=== PATIENT | male | born 1990 | race American Indian/Alaskan Native ===

== ENCOUNTER 2021-04-01 04:07 | Emergency (ER) | payer SELFPAY ==
[2021-04-01 04:14] VITALS: BP 154/97
[2021-04-01] MEDS ORDERED: MORPHINE 4 MG/1 ML INJ IV ONE (04:20)
[2021-04-01] MEDS ORDERED: SODIUM CHLORIDE 0.9% 1000 ML 1,000 ML IV ONE (04:20)
[2021-04-01] MEDS ORDERED: ONDANSETRON 4 MG/2 ML INJ IV ONE (04:20)
[2021-04-01] MEDS ORDERED: KETOROLAC 30 MG/1 ML INJ IV ONE (04:33)
--- NOTE | 2021-04-01 05:12 | Emergency Department Report ---
ED Abdominal Pain HPI - General Chief Complaint: Abdominal Pain Stated Complaint: VOMITING Time Seen by Provider: 04/01/21 04:19 Source: patient Mode of arrival: Ambulatory Limitations: No Limitations - History of Present Illness Initial Comments: Patient presents with upper abdominal pain and vomiting that started about 2 hours prior to arrival. He states that he just had onset of epigastric pain followed by vomiting. There has been no hematemesis or coffee-ground emesis. He has no trauma. There is been no fevers or chills. Patient states he is never had symptoms like this before. The pain is sharp and stabbing. It does not radiate or migrate. It is not associated with trauma. Patient has no diarrhea. He states he just cannot get comfortable. The pain is severe and he is never had pain of this nature before. He has not noticed any alleviating factors. Severity scale (0 -10): 8 - Related Data Previous Rx's Medication Instructions Recorded Last Taken Type Dicyclomine [Bentyl] 20 mg PO QID PRN #30 tablet 04/01/21 Unknown Rx Ondansetron [Zofran ODT TAB] 8 mg PO Q8HR PRN #20 tab.rapdis 04/01/21 Unknown Rx Allergies Allergy/AdvReac Type Severity Reaction Status Date / Time No Known Allergies Allergy Verified 04/01/21 04:28 ED Review of Systems ROS: Stated complaint: VOMITING Other details as noted in HPI Comment: All other systems reviewed and negative Constitutional: denies: fever Eyes: denies: vision change ENT: denies: throat pain Respiratory: denies: cough Cardiovascular: denies: chest pain Endocrine: denies: unexplained weight loss Gastrointestinal: as per HPI Genitourinary: denies: dysuria Musculoskeletal: denies: back pain Skin: denies: rash Neurological: denies: headache Hematological/Lymphatic: denies: easy bruising ED Past Medical Hx - Past Medical History Previous Medical History?: Yes Hx Hypertension: Yes Additional medical history: Obesity - Surgical History Past Surgical History?: No - Family History Family history: hypertension - Social History Smoking Status: Never Smoker Substance Use Type: None - Medications Home Medications: Home Medications Medication Instructions Recorded Confirmed Last Taken Type Dicyclomine [Bentyl] 20 mg PO QID PRN #30 tablet 04/01/21 Unknown Rx Ondansetron [Zofran ODT TAB] 8 mg PO Q8HR PRN #20 tab.rapdis 04/01/21 Unknown Rx ED Physical Exam - General Limitations: No Limitations, Other (Pulse ox noted and hypoxic. This improves with deep breath.) General appearance: alert, in distress (Moderate to severe discomfort), obese - Head Head exam: Present: atraumatic, normocephalic, normal inspection - Eye Eye exam: Present: normal appearance, EOMI. Absent: scleral icterus - ENT ENT exam: Present: normal exam, normal orophraynx, normal external ear exam - Neck Neck exam: Present: normal inspection. Absent: meningismus - Respiratory Respiratory exam: Present: normal lung sounds bilaterally. Absent: respiratory distress - Cardiovascular Cardiovascular Exam: Present: regular rate, normal rhythm - GI/Abdominal GI/Abdominal exam: Present: soft, tenderness (Epigastric and moderate). Absent: guarding, rebound, pulsatile mass - Extremities Exam Extremities exam: Present: normal capillary refill - Back Exam Back exam: Absent: CVA tenderness (R), CVA tenderness (L) - Neurological Exam Neurological exam: Present: alert, oriented X3, CN II-XII intact. Absent: motor sensory deficit - Psychiatric Psychiatric exam: Present: normal affect, normal mood - Skin Skin exam: Present: diaphoretic ED Course Vital Signs 04/01/21 04:13 Temperature 98.3 F Pulse Rate 87 Respiratory 18 Rate Blood Pressure 154/97 O2 Sat by Pulse 93 Oximetry - Reevaluation(s) Reevaluation #1: 04/01/21 05:14 IV and labs have been ordered. Old records reviewed. Labs are still pending at this time. Reevaluation #2: 04/01/21 05:49 Labs are noted and discussed with the patient. He is feeling better. He was discharged. Abdomen is soft and nontender. There is no rebound or guarding peer there is no tenderness over McBurney's point. ED Medical Decision Making - Lab Data Result diagrams: 04/01/21 04:42 04/01/21 04:42 - Medical Decision Making Patient presents with epigastric pain and vomiting. Etiology for this remains unclear. He certainly could have gastritis or an ulcer. Based on his ev aluation, there is no evidence of acute hepatitis or pancreatitis. He does not have clinical evidence of obstruction. There is no distention or tympany. There is no tenderness over McBurney's point to suggest acute appendicitis. He does not have tenderness in the right upper quadrant suggestive of biliary colic. We have had a discussion about outpatient follow-up and strict return precautions. Critical Care Time: No Critical care attestation.: If time is entered above; I have spent that time in minutes in the direct care of this critically ill patient, excluding procedure time. ED Disposition Clinical Impression: Acute epigastric pain Nausea & vomiting Qualifiers: Vomiting type: unspecified Vomiting Intractability: non-intractable Qualified Code(s): R11.2 - Nausea with vomiting, unspecified Disposition: HOME / SELF CARE / HOMELESS Is pt being admited?: No Condition: Stable Instructions: Abdominal Pain, Adult, Mnin-ow-Dynl, Nausea and Vomiting, Adult, Pain Without a Known Cause Additional Instructions: HAVE A BLAND DIET. DRINK WATER. RETURN FOR PROBLEMS. SEE YOUR DOCTOR OR THE REFERRAL DOCTOR FOR RECHECK. IF YOU DEVELOP OTHER SYMPTOMS DISCUSSED, RETURN IMMEDIATELY. Prescriptions: Dicyclomine [Bentyl] 20 mg PO QID PRN #30 tablet PRN Reason: PAIN Ondansetron [Zofran ODT TAB] 8 mg PO Q8HR PRN #20 tab.rapdis PRN Reason: Nausea Referrals: PRIMARY CAREMD [Primary Care Provider] - 3-5 Days AGUEDA STODDARD MD [Staff Physician] - 3-5 Days
[2021-04-01 05:16] LABS: Mean Corpuscular HGB Conc 33 % (32-34)
[2021-04-01 05:20] LABS: Basophils # (Auto) 0.1 K/mm3 (0.0-0.1); Basophils % (Auto) 0.5 % (0.0-1.8); Eosinophils # (Auto) 0.1 K/mm3 (0.0-0.4); Eosinophils % (Auto) 0.7 % (0.0-4.3); Hematocrit 44.2 % (35.5-45.6); Hemoglobin 14.4 gm/dl (11.8-15.2); Lymphocytes # (Auto) 1.9 K/mm3 (1.2-5.4); Lymphocytes % (Auto) 15.5 % (13.4-35.0); Mean Corpuscular Volume 84 fl (84-94); Monocytes # (Auto) 0.6 K/mm3 (0.0-0.8); Monocytes % (Auto) 5.4 % (0.0-7.3); Platelet Count 258 K/mm3 (140-440); Red Blood Count 5.26 M/mm3 (3.65-5.03); Red Cell Distribution Width 16.7 % (13.2-15.2)
[2021-04-01 05:21] LABS: Alanine Aminotransferase 22 units/L (7-56); Albumin 4.7 g/dL (3.9-5); BUN/Creatinine Ratio 7; Blood Urea Nitrogen 8 mg/dL (9-20); Calcium 9.1 mg/dL (8.4-10.2); Hemolysis Index 169
[2021-04-01 05:46] LABS: RBC Morphology Normal; Total Cells Counted 100
== END 2021-04-01 06:16 | disposition home or self-care (01) ==
LOC: ED 04:07
DX: R10.13 Epigastric pain (principal); R11.2 Nausea with vomiting, unspecified; R10.11 Right upper quadrant pain; I10 Essential (primary) hypertension; Z79.899 Other long term (current) drug therapy
CPT/HCPCS: 36415; 80053; 83690; 85007; 85025; 96361; 96374; 96375; 99283; J1885; J2405; J7030; J2270